=== PATIENT | female | born 1970 | race African-American/Black ===

== ENCOUNTER 2018-02-28 10:08 | Emergency (ER) | payer OTHER ==
[~2018-02-28 10:08] MED LIST: [UNRECOGNIZED DRUG - REMARK]
[2018-02-28 10:18] VITALS: BP 142/62; PULSE 96; RESP 16; TEMP 99.5; O2SAT 100
--- NOTE | 2018-02-28 10:30 | PD ---
HPI Chief Complaint: Cold / Flu Symptoms Time Seen by Provider: 10:29 Travel History International Travel<30 days: Yes Contact w/Intl Traveler<30days: Yes Name of Country Traveled to: [facility], [facility], [place] Traveled to known affect area: Yes History of Present Illness HPI 47-year-old female with no significant medical history presents emergency department for evaluation of nausea, vomiting, body aches, fever, chills, cough , chest congestion worsening over the last week since the patient got off of a cruise ship. Patient states her cough is nonproductive. She feels like her chest is tight and she feels short of breath at times. Denies any cardiac history. Denies any diarrhea. No hematemesis or hemoptysis. Patient has no other symptoms to report. PFSH Past Medical History Diabetes: Yes (DIET CONTROL) Tubal Ligation: Yes Past Surgical History Section: Yes Social History Alcohol Use: No Tobacco Use: No Substance Use: No Allergies-Medications (Allergen,Severity, Reaction): Coded Allergies: iodine (Unverified Allergy, Mild, THROAT EDEMA, 02/28/18) potassium iodide (Unverified Allergy, Mild, THROAT EDEMA, 02/28/18) povidone-iodine (Unverified Allergy, Mild, THROAT EDEMA, 02/28/18) sodium iodide (Unverified Allergy, Mild, THROAT EDEMA, 02/28/18) sodium iodide (Unverified Allergy, Mild, THROAT EDEMA, 02/28/18) Reported Meds & Prescriptions Reported Meds & Active Scripts Active Proair Hfa 8.5 GM Inh (Albuterol Sulfate) 90 Mcg/Act Aer 2 Puff INH Q4HR PRN 108 mcg/actuation Medrol Dosepak (Methylprednisolone) 4 Mg Dspk 4 Mg PO DIRECTED Per Pharmacist direction Zithromax Z-Darrin (Azithromycin) 250 Mg Dspk 250 Mg PO DIRECTED 500 MG (2 tabs) day 1, then 1 tab days 2-5. Review of Systems Except as stated in HPI: all other systems reviewed are Neg Physical Exam Narrative GENERAL: Well-nourished female patient, no acute distress. SKIN: Focused skin assessment warm/dry. HEAD: Atraumatic. Normocephalic. EYES: Pupils equal and round. No scleral icterus. No injection or drainage. ENT: No nasal bleeding or discharge. Mucous membranes pink and moist. NECK: Trachea midline. No JVD. CARDIOVASCULAR: Tachycardic rate and rhythm. No murmur appreciated. RESPIRATORY: No accessory muscle use. Clear to auscultation. Breath sounds equal bilaterally. GASTROINTESTINAL: Abdomen soft, non-tender, nondistended. Hepatic and splenic margins not palpable. MUSCULOSKELETAL: No obvious deformities. No clubbing. No cyanosis. No edema. NEUROLOGICAL: Awake and alert. No obvious cranial nerve deficits. Motor grossly within normal limits. Normal speech. PSYCHIATRIC: Appropriate mood and affect; insight and judgment normal. Data Data Last Documented VS Vital Signs Date Time Temp Pulse Resp B/P (MAP) Pulse Ox O2 Delivery O2 Flow Rate FiO2 02/28/18 10:59 100 Room Air 02/28/18 10:18 99.5 96 16 142/62 (88) Orders Orders Complete Blood Count With Diff (02/28/18 10:37) Basic Metabolic Panel (Bmp) (02/28/18 10:37) Group A Rapid Strep Screen (02/28/18 10:37) Influenzae A/B Antigen (02/28/18 10:37) Iv Access Insert/Monitor (02/28/18 10:37) Oximetry (02/28/18 10:37) Ibuprofen (Motrin) (02/28/18 10:45) Sodium Chloride 0.9% Flush (Ns Flush) (02/28/18 10:45) Sodium Chlor 0.9% 1000 Ml Inj (Ns 1000 M (02/28/18 10:45) Strep Culture (Group A) (02/28/18 10:45) Sodium Chlor 0.9% 1000 Ml Inj (Ns 1000 M (02/28/18 12:00) Ed Discharge Order (02/28/18 12:32) Labs Laboratory Tests Test 02/28/18 10:57 White Blood Count 7.9 TH/MM3 Red Blood Count 3.75 MIL/MM3 Hemoglobin 8.1 GM/DL Hematocrit 25.1 % Mean Corpuscular Volume 66.8 FL Mean Corpuscular Hemoglobin 21.6 PG Mean Corpuscular Hemoglobin Concent 32.4 % Red Cell Distribution Width 32.0 % Platelet Count 517 TH/MM3 Mean Platelet Volume 8.8 FL Neutrophils (%) (Auto) 72.9 % Lymphocytes (%) (Auto) 17.5 % Monocytes (%) (Auto) 8.3 % Eosinophils (%) (Auto) 1.1 % Basophils (%) (Auto) 0.2 % Neutrophils # (Auto) 5.7 TH/MM3 Lymphocytes # (Auto) 1.4 TH/MM3 Monocytes # (Auto) 0.7 TH/MM3 Eosinophils # (Auto) 0.1 TH/MM3 Basophils # (Auto) 0.0 TH/MM3 CBC Comment AUTO DIFF Differential Comment AUTO DIFF CONFIRMED Tear Drop Cells 1+ Ovalocytes 1+ Acanthocytes OCC Blood Urea Nitrogen 11 MG/DL Creatinine 0.85 MG/DL Random Glucose 118 MG/DL Calcium Level 8.6 MG/DL Sodium Level 138 MEQ/L Potassium Level 3.5 MEQ/L Chloride Level 104 MEQ/L Carbon Dioxide Level 25.9 MEQ/L Anion Gap 8 MEQ/L Estimat Glomerular Filtration Rate 88 ML/MIN MDM Medical Decision Making Medical Screen Exam Complete: Yes Emergency Medical Condition: Yes Medical Record Reviewed: Yes Differential Diagnosis Bronchitis versus pneumonia versus influenza versus gastroenteritis versus gastritis versus viral syndrome versus influenza Narrative Course 47-year-old female presents emergency department for evaluation of multiple flulike symptoms. Patient does have productive cough and chest congestion 1 week. Laboratory Tests Test 02/28/18 10:57 White Blood Count 7.9 TH/MM3 Red Blood Count 3.75 MIL/MM3 Hemoglobin 8.1 GM/DL Hematocrit 25.1 % Mean Corpuscular Volume 66.8 FL Mean Corpuscular Hemoglobin 21.6 PG Mean Corpuscular Hemoglobin Concent 32.4 % Red Cell Distribution Width 32.0 % Platelet Count 517 TH/MM3 Mean Platelet Volume 8.8 FL Neutrophils (%) (Auto) 72.9 % Lymphocytes (%) (Auto) 17.5 % Monocytes (%) (Auto) 8.3 % Eosinophils (%) (Auto) 1.1 % Basophils (%) (Auto) 0.2 % Neutrophils # (Auto) 5.7 TH/MM3 Lymphocytes # (Auto) 1.4 TH/MM3 Monocytes # (Auto) 0.7 TH/MM3 Eosinophils # (Auto) 0.1 TH/MM3 Basophils # (Auto) 0.0 TH/MM3 CBC Comment AUTO DIFF Differential Comment AUTO DIFF CONFIRMED Tear Drop Cells 1+ Ovalocytes 1+ Acanthocytes OCC Blood Urea Nitrogen 11 MG/DL Creatinine 0.85 MG/DL Random Glucose 118 MG/DL Calcium Level 8.6 MG/DL Sodium Level 138 MEQ/L Potassium Level 3.5 MEQ/L Chloride Level 104 MEQ/L Carbon Dioxide Level 25.9 MEQ/L Anion Gap 8 MEQ/L Estimat Glomerular Filtration Rate 88 ML/MIN Patient will be provided albuterol neb and short course of oral steroids. She is counseled on importance of monitoring her blood glucose. I have also encouraged PCP follow up in regards to her anemia. She agrees to return immediately with acute worsening symptoms. Diagnosis Primary Impression: URI (upper respiratory infection) Qualified Codes: J06.9 - Acute upper respiratory infection, unspecified Referrals: Primary Care Physician Patient Instructions: General Instructions, Upper Respiratory Infection (ED) Departure Forms: Tests/Procedures, Work Release Enter return to work date: March 03, 2018 Additional Instructions: Rest Maintain adequate oral hydration Follow-up with a primary care provider Monitor blood glucose as steroids will cause and increase in your blood sugar Return immediately with acute worsening symptoms Med/Other Pt SpecificInfo: Prescription(s) given Scripts Albuterol 8.5 GM Inh (Proair Hfa 8.5 GM Inh) 90 Mcg/Act Aer 2 PUFF INH Q4HR Y for SHORTNESS OF BREATH, #1 INHALER 0 Refills 108 mcg/actuation Prov: Luzmaria Brandon 02/28/18 Methylprednisolone Dosepak (Medrol Dosepak) 4 Mg Dspk 4 MG PO DIRECTED, #1 DSPK 0 Refills Per Pharmacist direction Prov: Luzmaria Brandon 02/28/18 Azithromycin (Zithromax Z-Darrin) 250 Mg Dspk 250 MG PO DIRECTED for Infection, #1 DSPK 0 Refills 500 MG (2 tabs) day 1, then 1 tab days 2-5. Prov: Luzmaria Brandon 02/28/18 Disposition: 01 DISCHARGE HOME Condition: Stable Luzmaria Brandon February 28, 2018 10:30
[2018-02-28] MEDS ORDERED: IBUPROFEN 800 MG TAB PO ONE (10:45)
[2018-02-28] MEDS ORDERED: SODIUM CHLOR 0.9% 1000 ML INJ 1,000 ML IV ONE ×2 (10:45→12:00)
[2018-02-28] MEDS ORDERED: SODIUM CHLORIDE 0.9% FLUSH 10 ML FLUSH IVF PRN (10:45)
[2018-02-28 10:59] VITALS: O2SAT 100
[2018-02-28 11:27] LABS: BICARBONATE 25.9 MEQ/L (21.0-32.0); CALCIUM 8.6 MG/DL (8.5-10.1); CREATININE 0.85 MG/DL (0.50-1.00)
[2018-02-28 11:30] LABS: AUTOMATED NEUTROPHIL # 5.7 TH/MM3 (1.8-7.7); BASOPHIL % 0.2 % (0.0-2.0); EOSINOPHIL # 0.1 TH/MM3 (0-0.4); EOSINOPHIL % 1.1 % (0.0-4.0); HEMATOCRIT 25.1 % (35.0-46.0); HEMOGLOBIN 8.1 GM/DL (11.6-15.3); LYMPH % 17.5 % (9.0-44.0); LYMPHOCYTE # 1.4 TH/MM3 (1.0-4.8); MEAN CELL VOLUME 66.8 FL (80.0-100.0); MEAN CORPUSCULAR HEMOGLOBIN 21.6 PG (27.0-34.0); MEAN CORPUSCULAR HGB CONC 32.4 % (32.0-36.0); MEAN PLATELET VOLUME 8.8 FL (7.0-11.0); MONO % 8.3 % (0.0-8.0); MONOCYTE # 0.7 TH/MM3 (0-0.9); NEUT % 72.9 % (16.0-70.0); PLATELET COUNT 517 TH/MM3 (150-450); RED BLOOD COUNT 3.75 MIL/MM3 (4.00-5.30); WHITE BLOOD COUNT 7.9 TH/MM3 (4.0-11.0)
[2018-02-28 12:21] LABS: ACANTHOCYTES OCC (NORMAL); OVALOCYTES 1+ (NORMAL); TEARDROP RBCS 1+ (NORMAL)
[2018-02-28] MEDS ORDERED: ALBUAER3 INH (12:34)
[2018-02-28] MEDS ORDERED: ZITHTAB PO (12:34)
[2018-02-28] MEDS ORDERED: MEDR4PAK PO (12:34)
== END 2018-02-28 14:10 | disposition home or self-care (01) ==
LOC: NEPD 10:08
DX: J06.9 Acute upper respiratory infection, unspecified (principal); R06.02 Shortness of breath; R05 Cough; R11.2 Nausea with vomiting, unspecified; E11.9 Type 2 diabetes mellitus without complications
CPT/HCPCS: 80048; 85025; 87081; 87804; 87880; 96360; 96361; 99284; J7030